=== PATIENT | male | born 1985 | race African-American/Black ===

== ENCOUNTER 2021-08-12 21:51 | Emergency (ER) | payer MEDICAID, OTHER ==
[~2021-08-12] VITALS: Ht 188 cm; Wt 91.0 kg
[2021-08-12 22:05] VITALS: BP 151/89
[2021-08-12] MEDS ORDERED: BO1 TP (22:45)
[2021-08-12] MEDS ORDERED: AMOX-424 MT (22:45)
[2021-08-12] MEDS ORDERED: IBUP-2029 MT (22:58)
[2021-08-12] MEDS ORDERED: T3 PO (23:09)
== END 2021-08-12 23:07 | disposition home or self-care (01) ==
LOC: ER 21:51
DX: L73.9 Follicular disorder, unspecified (principal); K04.7 Periapical abscess without sinus; F15.90 Other stimulant use, unspecified, uncomplicated; F12.90 Cannabis use, unspecified, uncomplicated
CPT/HCPCS: 99283

== ENCOUNTER 2024-04-24 19:36 | Emergency (ER) | payer MEDICAID ==
[~2024-04-24] VITALS: Ht 188 cm; Wt 98.0 kg
[~2024-04-24 19:36] MED LIST: AMOX-424 MT; BO1 TP; IBUP-2029 MT; T3 PO
[2024-04-24 19:38] VITALS: O2SAT 96
[2024-04-24 19:49] VITALS: BP 133/70; PULSE 113; RESP 18; TEMP 98.4; O2SAT 95
[2024-04-25] MEDS ORDERED: P50 MT (00:12)
[2024-04-25] MEDS ORDERED: BENZ100C86 MT (00:12)
[2024-04-25] MEDS ORDERED: ALBU90AE INH (00:12)
[2024-04-25] MEDS ORDERED: AZIT250T12 MT (00:12)
== END 2024-04-25 00:20 | disposition home or self-care (01) ==
LOC: ER 19:36
DX: J18.9 Pneumonia, unspecified organism (principal); J45.909 Unspecified asthma, uncomplicated; F12.10 Cannabis abuse, uncomplicated; F15.10 Other stimulant abuse, uncomplicated; Z98.890 Other specified postprocedural states; Z79.899 Other long term (current) drug therapy
CPT/HCPCS: 71045; 99283